=== PATIENT | male | born 1945 | race Caucasian/White ===

== ENCOUNTER → 2025-01-10 10:57 | Outpatient (REF) | payer OTHER, SELFPAY | LOC: HWRAD 10:57 | PROVIDERS: ATTENDING PHYSICIAN Podiatrist Foot & Ankle Surgery | DX: M14.671 Charcot's joint, right ankle and foot (principal); M84.374A Stress fracture, right foot, initial encounter for fracture; E11.51 Type 2 diabetes mellitus with diabetic peripheral angiopathy without gangrene | CPT/HCPCS: 73630 ==

== ENCOUNTER 2025-02-03 10:42 | Emergency (ER) | payer OTHER, SELFPAY ==
[2025-02-03 10:46] VITALS: BP 126/89
--- NOTE | 2025-02-03 11:26 | ED.MUSCINJ ---
HPI-Injury
General
Chief Complaint: Musculo-Skeletal Complaint
Source: patient
Exam Limitations: none
Time Seen by Provider: 02/03/25 11:10
History of Present Illness-Injury
Initial Injury comments:
79-year-old male presents complaining of lower back pain that radiates down the anterior right thigh. Is been worse and progressively worse over the past 4 days. Actually is worse at night and keeps him up from sleeping. Denies any bowel or
bladder dysfunction. No fever. No weakness to the legs. He is a [id number] diabetic. No known injury. He notes that he had an x-ray of his lumbar spine 2 days ago and is waiting to hear the results. No other complaints
Phy Exam
Physical Exam
Physical Exam:
General: Well-appearing male no acute respiratory distress
HEENT normal cephalic atraumatic
Musculoskeletal exam: Patient is slightly tender over the lumbosacral junction on the right side. He has good range of motion to the lower extremities
Neurologic exam: Normal gait good strength to lower extremities bilateral patellar reflexes 1+. Good sensation lower extremities negative straight leg raise
Skin is warm without a rash
MDM/Problems Addressed
Differential Diagnosis Includes:
Low back pain with right thigh pain. Most consistent with radiculopathy. No signs to suggest cauda equina. No fever to suggest infectious source.
Patient is ambulatory. There is no neurologic deficit. He is having trouble sleeping. Will prescribe Valium and prednisone. He will follow-up with his family doctor
*Pulse Oximetry
SaO2: 96
Oxygen Mode of Delivery: Room air
Patient hypoxic: no
*Critical Care Note
Total Time (30-74mins, 75-104mins- exclusive of procedures): Not Applicable
ED Attending Note
-
Portions of this chart may have been created with voice recognition software.� Occasional wrong word or��sound alike� substitutions may have occurred due to the inherent limitations of voice recognition software.
Discharge Plan
Departure
Patient Disposition: Home (Routine Discharge)
Date of Disposition: 02/03/25
Time of Disposition: 11:30
Patient with high blood pressure during this ER visit?: No
Discharge Problem:
Acute lumbar radiculopathy
Instructions: Muscle and Bone Pain (DC)
Prescriptions:
New
diazepam [Valium] 5 mg tablet
5 mg PO BID PRN (Reason: muscle spasm) Qty: 10 0RF
prednisone 10 mg Tablet
See Rx Instructions .ROUTE .COMPLEX Qty: 30 0RF
Rx Instructions:
Take By Mouth:
40 mg daily x3 days, 30 mg daily x3 days,
20 mg daily x3 days, 10 mg daily x3 days.
Activity Restrictions/Additional Instructions:
Use prescribed medication as directed. Return if worse otherwise continue to follow-up with your family doctor
Interventions
Interventions:
*Risk Screen - Suicide Last Done: 02/03/25 10:46
*General Assessment Last Done: 02/03/25 10:46
*Neglect/Abuse Screening Last Done: 02/03/25 10:46
*ED- Fall Risk Assessment Last Done: 02/03/25 11:01
*Nursing Disposition Last Done: 02/03/25 11:51
ED-Musculoskeletal Assessment Last Done: 02/03/25 11:01
Discharge Date and Time
Discharge Date/Time: 02/03/25 11:52
Print Language: GREENLANDIC
== END 2025-02-03 11:52 | disposition home or self-care (01) ==
LOC: EMR 10:42
PROVIDERS: EMERGENCY PHYSICIAN Emergency Medicine
DX: M54.16 Radiculopathy, lumbar region (principal); E11.9 Type 2 diabetes mellitus without complications
CPT/HCPCS: 99283